=== PATIENT | female | born 1985 | race Caucasian/White ===

== ENCOUNTER 2018-05-28 20:04 | Emergency (ER) | payer SELFPAY ==
[~2018-05-28] VITALS: Ht 172.7 cm; Wt 124.3 kg
--- NOTE | 2018-05-28 20:46 | NUR ---
Doctor imformed of patient condition.
[2018-05-28] MEDS ORDERED: AMOX500C2 PO (20:51)
--- NOTE | 2018-05-28 20:51 | ED EENT ---
History of Present Illness General Chief Complaint: Oral/Throat Problems Stated Complaint: SORE THROAT, CHILLS, FEVER, BODY ACHES History of Present Illness Date Seen by Provider: May 28, 2018 Time Seen by Provider: 20:40 Timing/Duration: gradual Severity: moderate Location: throat Prearrival Treatment: over the counter meds Associated Symptoms: No cough; sore throat 33-year-old female presents with a sore throat for the last couple of days after being exposed to several friends who were diagnosed with strep throat. Pain is worse when swallowing but no difficulty swallowing. No difficulty breathing. No cough. She does have a subjective fever. No rash, no other symptoms. Allergies and Home Medications Allergies Coded Allergies: coconut (Verified Allergy, Unknown, 05/28/18) Uncoded Allergies: STRAWBERRIES (Allergy, Unknown, 05/28/18) Home Medications Amoxicillin 500 Mg Capsule, 500 MG PO TID Prescribed by: MATT PEREZ on 05/28/182050 Patient Home Medication List Home Medication List Reviewed: Yes Review of Systems Review of Systems Constitutional: see HPI Eyes: No Symptoms Reported Nose: no symptoms reported Mouth: no symptoms reported Throat: see HPI Respiratory: no symptoms reported Cardiovascular: no symptoms reported Gastrointestinal: no symptoms reported Musculoskeletal: no symptoms reported Skin: no symptoms reported Neurological: No Symptoms Reported Hematologic/Lymphatic: No Symptoms Reported Immunological/Allergic: no symptoms reported Past Kyssjdh-Svuokn-Jiemgp Hx Past Med/Social Hx: Reviewed Nursing Past Med/Soc Hx Patient Social History Recent Foreign Travel: No Contact w/Someone Who Travel: No Physical Exam Vital Signs Vital Signs - First Documented 05/28/18 20:42 Temp 100.0 Pulse 110 Resp 20 B/P (MAP) 144/84 (104) Pulse Ox 100 Height, Weight, BMI Height: '" Weight: lbs. oz. kg; BMI Method: General Appearance: no apparent distress Eyes: bilateral eye normal inspection Nose: normal inspection Mouth/Throat: No pharynx swelling; tonsillar exudate Neck: other (there is tenderness over the bilateral anterior cervical chains) Cardiovascular: normal peripheral pulses, regular rate, rhythm Respiratory: normal breath sounds Gastrointestinal: non tender, soft Skin: warm/dry Progress/Results/Core Measures Results/Orders Lab Results Laboratory Tests Test 05/28/18 20:50 Range/Units My Orders Orders - MATT PEREZ DO Rapid Strep A Screen (05/28/18 20:49) Amoxicillin Capsule (Polymox Capsule) (05/28/18 20:58) Vital Signs/I&O 05/28/18 20:42 Temp 100.0 Pulse 110 Resp 20 B/P (MAP) 144/84 (104) Pulse Ox 100 Progress Progress Note : Progress Note Fever, tonsillar exudate, anterior cervical adenopathy, absence of cough, exposure to strep, we'll treat empirically with amoxicillin, first dose given in the emergency department. Throat culture was obtained. Airway is patent. Patient is nontoxic. Stable for outpatient follow-up. Departure Impression Primary Impression: Exudative pharyngitis Disposition: HOME, SELF-CARE Condition: Stable Departure-Patient Inst. Referrals: NO,LOCAL PHYSICIAN (PCP) Primary Care Physician Patient Instructions: Strep Throat (DC) Scripts Amoxicillin (Amoxicillin) 500 Mg Capsule 500 MG PO TID for 10 Days, #30 CAP 0 Refills Prov: MATT PEREZ DO 05/28/18 MATT PEREZ DO May 28, 2018 20:51
[2018-05-28] MEDS ORDERED: AMOXICILLIN 500 MG (POLYMOX) CAP PO STA (20:58)
[2018-05-28 21:05] VITALS: BP 129/51
== END 2018-05-28 21:05 | disposition home or self-care (01) ==
LOC: ER FS 20:06
DX: J02.9 Acute pharyngitis, unspecified (principal)
CPT/HCPCS: 87430; 99284

== ENCOUNTER 2020-05-06 22:48 | Emergency (ER) | payer MEDICAID, OTHER ==
[~2020-05-06] VITALS: Ht 170.1 cm; Wt 136.0 kg
[~2020-05-06 22:48] MED LIST: ACETAMINOPHEN; ACHD5005 PO; AMOX500C2 PO; BUSPAR; CEPH500C PO; CODEINE; DICY20TA57 PO; IBUP-15 PO; METR500T PO; NITR100C PO; [UNRECOGNIZED DRUG - CODE]
[2020-05-06 23:00] VITALS: BP 119/69
[2020-05-06] MEDS ORDERED: PROM25TA14 PO (23:14)
[2020-05-06] MEDS ORDERED: IBUP-1780 PO (23:14)
[2020-05-06] MEDS ORDERED: PROMETHAZINE INJ 25 MG/ML (PHENERGAN) AMP IM/IV ONE (23:15)
[2020-05-06] MEDS ORDERED: KETOROLAC 60 MG/2 ML VIAL IM ONE (23:15)
--- NOTE | 2020-05-06 23:15 | ED Headache ---
General Chief Complaint: Head/Cervical Problems Stated Complaint: VOMITING/HEADACHE History of Present Illness Date Seen by Provider: May 06, 2020 Time Seen by Provider: 11:05 Initial Comments 35-year-old female presents with headache beginning at 2 AM today. Continues on arrival without relief. She is taken Tylenol x1 and ibuprofen 800x1 with no relief. History of migraine headaches, but has not had one for a couple years. Denies any recent illness, fever chills, nausea vomiting, cough or shortness of air. Does have some associated nausea, some mild light sensitivity without visual change. Denies any numbness weakness or paresthesia Allergies and Home Medications Allergies Coded Allergies: coconut (Verified Allergy, Unknown, 05/28/18) Uncoded Allergies: STRAWBERRIES (Allergy, Unknown, 05/28/18) Home Medications Amoxicillin 500 Mg Capsule, 500 MG PO TID Prescribed by: MATT PEREZ on 05/28/182050 Dicyclomine Hcl 20 Mg Tablet, 1 EACH PO QID PRN Prescribed by: MARK DENG on 06/04/112213 Metronidazole 500 Mg Tab, 1 EACH PO BID Prescribed by: MARK DENG on 06/04/112213 Patient Home Medication List Home Medication List Reviewed: Yes Review of Systems Review of Systems Constitutional: No dizziness, No fever; malaise; No weakness Eyes: Denies Blindness, Denies Blurred Vision, Denies Decreased Acuity, Denies Inflammation, Denies Pain; Photophobia Ears, Nose, Mouth, Throat: no symptoms reported Respiratory: no symptoms reported Cardiovascular: no symptoms reported Gastrointestinal: No abdominal pain, No constipation, No diarrhea, No loss of appetite; nausea, vomiting (x1) Musculoskeletal: No back pain, No neck pain Psychiatric/Neurological: See HPI, Headache; Denies Numbness, Denies Paresthesia, Denies Seizure, Denies Tingling, Denies Tremors, Denies Weakness Past Lyvrhmj-Fznjhl-Iaxysj Hx Past Med/Social Hx: Reviewed Nursing Past Med/Soc Hx Immunizations Up To Date Date of Influenza Vaccine: Mar 14, 2011 Physical Exam Vital Signs Capillary Refill : Height, Weight, BMI Height: 5'8.00" Weight: 274lbs. oz. 124.945619bz; BMI Method:Stated General Appearance: WD/WN, no apparent distress HEENT: PERRL/EOMI, normal ENT inspection, TMs normal, pharynx normal Neck: non-tender, supple, normal inspection Psychiatric: alert, oriented x 3 Crainal Nerves: normal hearing, normal speech, PERRL Coordination/Gait: normal finger to nose, normal gait Motor/Sensory: no motor deficit, no sensory deficit Skin: normal color, warm/dry Progress/Results/Core Measures Results/Orders My Orders Orders - TRACEY LOREDO DO Ketorolac Injection (Toradol Injection) (05/06/20 23:15) Promethazine Injection (Phenergan Injec (05/06/20 23:15) Departure Impression Primary Impression: Migraine Qualified Codes: G43.909 - Migraine, unspecified, not intractable, without status migrainosus Disposition: HOME, SELF-CARE Condition: Improved Departure-Patient Inst. Decision time for Depature: 11:30 Referrals: YOLA WILLS APRN (PCP/Family) Primary Care Physician Patient Instructions: Migraines (DC) Scripts Ibuprofen (Ibuprofen) 800 Mg Tablet 800 MG PO Q8H PRN for PAIN, #30 TAB 0 Refills Prov: TRACEY LOREDO DO 05/06/20 Promethazine HCl (Promethazine Tablet) 25 Mg Tablet 25 MG PO Q8H PRN for NAUSEA/VOMITING, #14 TAB 0 Refills Prov: TRACEY LOREDO DO 05/06/20 Work/School Note: Work Release Form Date Seen in the Emergency Department: May 06, 2020 Return to Work: May 08, 2020 Restrictions: No Restrictions TRACEY LOREDO DO May 06, 2020 23:15
== END 2020-05-06 23:35 | disposition home or self-care (01) ==
LOC: EDUNIT# 22:48 → ER FS 22:53
DX: G43.909 Migraine, unspecified, not intractable, without status migrainosus (principal)
CPT/HCPCS: 99284

== ENCOUNTER 2021-05-11 17:25 | Emergency (ER) | payer MEDICAID ==
[~2021-05-11] VITALS: Ht 172.7 cm; Wt 60.8 kg
[~2021-05-11 17:25] MED LIST changes: +IBUP-1780 PO; +PROM25TA14 PO
[2021-05-11 17:30] VITALS: BP 152/99
--- NOTE | 2021-05-11 17:31 | ED EENT ---
History of Present Illness General Stated Complaint: R EYE PAIN History of Present Illness Date Seen by Provider: May 11, 2021 Time Seen by Provider: 17:31 Initial Comments 36-year-old female presents because she has something in her right eye. She says it started about 2 hours prior to arrival. She is unsure if it sawdust or and eye lash. She has tried flushing it. Patient just complains of some pain especially with movement. Most the pain is on the lower part of the eye behind the lower lid. Allergies and Home Medications Allergies Coded Allergies: coconut (Verified Allergy, Unknown, 05/28/18) Uncoded Allergies: STRAWBERRIES (Allergy, Unknown, 05/28/18) Patient Home Medication List Home Medication List Reviewed: Yes Amoxicillin (Amoxicillin) 500 Mg Capsule, 500 MG PO TID Prescribed by: MATT PEREZ on 05/28/182050 Dicyclomine Hcl (Bentyl) 20 Mg Tablet, 1 EACH PO QID PRN Prescribed by: MARK DENG on 06/04/112213 Ibuprofen (Ibuprofen) 800 Mg Tablet, 800 MG PO Q8H PRN for PAIN Prescribed by: TRACEY LOREDO on 05/06/202313 Metronidazole (Flagyl 500 Mg) 500 Mg Tab, 1 EACH PO BID Prescribed by: MARK DENG on 06/04/112213 Promethazine HCl (Promethazine Tablet) 25 Mg Tablet, 25 MG PO Q8H PRN for NAUSEA/VOMITING Prescribed by: TRACEY LOREDO on 05/06/202313 Review of Systems Review of Systems Constitutional: no symptoms reported Eyes: See HPI Ears: No Symptoms Reported Respiratory: no symptoms reported Cardiovascular: no symptoms reported Gastrointestinal: no symptoms reported Past Ifbyenm-Nlyyda-Uzcgto Hx Past Medical History [employer] 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 oz. 124.750278td; 47.00 BMI Method:Stated General Appearance: no apparent distress Eyes: right eye foreign body (Eyelash/sawdust); bilateral eye PERRL, bilateral eye EOMI Nose: normal inspection Cardiovascular: normal peripheral pulses, regular rate, rhythm Respiratory: no respiratory distress, no accessory muscle use Neurologic/Psychiatric: alert, normal mood/affect, oriented x 3 Skin: normal color, warm/dry Procedures/Interventions Eye : Location: right eye Eye FB Removal: removal w/ cotton swab Anesthesia (gtts): Tetracaine Progress/Procedure Conclusion Fluorescein stain used with a Roach lamp and no corneal abrasion noted, there was a small eyelash along with a small what appeared to be piece of sawdust removed with cotton swab. Progress/Results/Core Measures Results/Orders My Orders Orders - LA MAYNARD DO Tetracaine 0.5% Ophth Lianet Sdv (Tetracai (05/11/21 17:45) Fluorescein Strips (Jssuf-G-Xxinmb) (05/11/21 17:35) Progress Progress Note : Progress Note Both an eyelash and what appears to be a very small piece of sawdust was removed with a cotton swab. Fluorescein stain shows no corneal abrasion. Patient is feeling suddenly better. Her right eye was flushed again after removal with cotton swab. Patient is doing much better stable and discharged Departure Impression Primary Impression: Foreign body of eye, external, right Qualified Codes: T15.91XA - Foreign body on external eye, part unspecified, right eye, initial encounter Disposition: 01 HOME, SELF-CARE Condition: Stable Departure-Patient Inst. Referrals: YOLA WILLS APRN (PCP/Family) Primary Care Physician Patient Instructions: Foreign Body in Eye (DC) Add. Discharge Instructions: Flushed with cool water if you feel there is another foreign body Return to the ER as needed Follow-up with your eye doctor the next couple days for recheck of your symptoms LA MAYNARD DO May 11, 2021 17:31
[2021-05-11] MEDS ORDERED: FLUORESCEIN (FLUOR-I-STRIPS) 1 MG STRP ONE (17:35)
[2021-05-11] MEDS ORDERED: TETRACAINE 0.5% OPHTH SOLN 4 ML BTL (SINGLE DOSE ONLY) OP ONE (17:45)
== END 2021-05-11 17:52 | disposition home or self-care (01) ==
LOC: EDUNIT# 17:25 → ER FS 17:26
DX: T15.91XA Foreign body on external eye, part unspecified, right eye, initial encounter (principal)
CPT/HCPCS: 99281

== ENCOUNTER 2022-07-11 18:02 | Emergency (ER) | payer OTHER, MEDICAID ==
[~2022-07-11] VITALS: Ht 170 cm; Wt 130.0 kg
[2022-07-11 18:06] VITALS: BP 144/88
[2022-07-11] MEDS ORDERED: FAMOTIDINE 20 MG (PEPCID) TABLET PO STA (18:10)
[2022-07-11] MEDS ORDERED: ANTACID SUSP 30 ML UDC (MYLANTA) PO ONE (18:15)
[2022-07-11] MEDS ORDERED: ACETAMINOPHEN 500 MG TAB (TYLENOL) PO ONE (18:15)
[2022-07-11] MEDS ORDERED: LORazepam 0.5 MG (ATIVAN) TABLET PO ONE (18:15)
[2022-07-11] MEDS ORDERED: KETOROLAC 15 MG/ML VIAL IVP ONE (18:15)
[2022-07-11] MEDS ORDERED: LIDOCAINE 2% VISCOUS 15 ML UDC PO ONE (18:15)
--- NOTE | 2022-07-11 18:15 | ED Back Pain ---
General Chief Complaint: Back Problems Stated Complaint: CHEST TIGHTNESS,NUMBESS IN HANDS/ARMS,SOB Nursing Triage Note: Patient has presented to ER with cc of back pain for the last few days, arms and hand numb and tingle for two months. She reports that she is tired of hurting. She also complains of tightness in her chest. She has not taking anything for her pain. She has been trying to get an appointment with her doctor for several weeks but she has not been able to get into the doctor. Source of Information: Patient Exam Limitations: No Limitations History of Present Illness Date Seen by Provider: Jul 11, 2022 Time Seen by Provider: 18:04 Initial Comments 29-year-old female with no pertinent past medical history coming in due to upper back pain and chest tightness its been going on for the past few days. Was come and go, not been constant for the entire day. Worse when she takes a deep breath. Try to see her doctor, but has been unable to get in. She is also had some tingling in her bilateral fingers for months. Denies any trauma, neck pain, weakness, shortness of breath, abdominal pain, nausea, vomiting, diarrhea, fever, chills, cough, leg swelling or pain, no prior history of DVT or PE, no cardiac history, no hemoptysis, no recent surgery, no hormone use. Allergies and Home Medications Allergies Coded Allergies: coconut (Verified Allergy, Unknown, 05/28/18) Uncoded Allergies: STRAWBERRIES (Allergy, Unknown, 05/28/18) Patient Home Medication List Home Medication List Reviewed: Yes Amoxicillin (Amoxicillin) 500 Mg Capsule, 500 MG PO TID Prescribed by: MATT PEREZ on 05/28/182050 Cyclobenzaprine HCl (Cyclobenzaprine HCl) 10 Mg Tablet, 10 MG PO Q8H PRN for SPASMS Prescribed by: CHRIST MERCADO on 07/11/22 184 Dicyclomine Hcl (Bentyl) 20 Mg Tablet, 1 EACH PO QID PRN Prescribed by: MARK DENG on 06/04/112213 Ibuprofen (Ibuprofen) 800 Mg Tablet, 800 MG PO Q8H PRN for PAIN Prescribed by: TRACEY LOREDO on 05/06/20 231 Metronidazole (Flagyl 500 Mg) 500 Mg Tab, 1 EACH PO BID Prescribed by: MARK DENG on 06/04/112213 Promethazine HCl (Promethazine Tablet) 25 Mg Tablet, 25 MG PO Q8H PRN for NAUSEA/VOMITING Prescribed by: TRACEY LOREDO on 05/06/20 2314 Review of Systems Constitutional: No fever EENTM: no symptoms reported Respiratory: no symptoms reported Cardiovascular: see HPI Gastrointestinal: no symptoms reported Genitourinary: no symptoms reported Musculoskeletal: see HPI Skin: no symptoms reported Psychiatric/Neurological: No Symptoms Reported Past Rhpvjaq-Guunqb-Narymt Hx Patient Social History Tobacco Use?: No Use of E-Cig and/or Vaping dev: No Substance use?: No Alcohol Use?: No Past Medical History Surgeries: Yes Gallbladder, 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 oz. 124.607402du; 44.00 BMI Method:Stated General Appearance: WD/WN, Anxious HEENT: PERRL/EOMI, Normal ENT Inspection, Pharynx Normal Neck: Full Range of Motion, Normal Inspection, Non Tender, Supple Cardiovascular: Regular Rate, Rhythm, No Edema, Normal Peripheral Pulses Respiratory: Chest Non Tender, Lungs Clear, Normal Breath Sounds, No Accessory Muscle Use, No Respiratory Distress Gastrointestinal: Normal Bowel Sounds, Non Tender, Soft; No Distended, No Guarding Back: Normal Inspection, No CVA Tenderness, No Vertebral Tenderness Extremity: Normal Capillary Refill, Normal Inspection, Normal Range of Motion, Non Tender, No Calf Tenderness, No Pedal Edema Neurologic/Psychiatric: Alert, No Motor/Sensory Deficits, Normal Mood/Affect Skin: Normal Color, Warm/Dry Progress/Results/Core Measures Results/Orders Lab Results Laboratory Tests Test 07/11/22 18:18 Range/Units White Blood Count 8.2 4.3-11.0 10^3/uL Red Blood Count 4.62 3.80-5.11 10^6/uL Hemoglobin 12.5 11.5-16.0 g/dL Hematocrit 37 35-52 % Mean Corpuscular Volume 81 80-99 fL Mean Corpuscular Hemoglobin 27 25-34 pg Mean Corpuscular Hemoglobin Concent 34 32-36 g/dL Red Cell Distribution Width 13.3 10.0-14.5 % Platelet Count 274 130-400 10^3/uL Mean Platelet Volume 9.6 9.0-12.2 fL Immature Granulocyte % (Auto) 0 % Neutrophils (%) (Auto) 62 42-75 % Lymphocytes (%) (Auto) 29 12-44 % Monocytes (%) (Auto) 6 0-12 % Eosinophils (%) (Auto) 2 0-10 % Basophils (%) (Auto) 1 0-10 % Neutrophils # (Auto) 5.1 1.8-7.8 10^3/uL Lymphocytes # (Auto) 2.4 1.0-4.0 10^3/uL Monocytes # (Auto) 0.5 0.0-1.0 10^3/uL Eosinophils # (Auto) 0.1 0.0-0.3 10^3/uL Basophils # (Auto) 0.1 0.0-0.1 10^3/uL Immature Granulocyte # (Auto) 0.0 0.0-0.1 10^3/uL Prothrombin Time 13.1 12.2-14.7 SEC INR Comment 1.0 0.8-1.4 Activated Partial Thromboplast Time 33 24-35 SEC Sodium Level 140 135-145 MMOL/L Potassium Level 3.6 3.6-5.0 MMOL/L Chloride Level 105 98-107 MMOL/L Carbon Dioxide Level 24 21-32 MMOL/L Anion Gap 11 5-14 MMOL/L Blood Urea Nitrogen 14 7-18 MG/DL Creatinine 0.85 0.60-1.30 MG/DL Estimat Glomerular Filtration Rate 90 BUN/Creatinine Ratio 16 Glucose Level 110 H 70-105 MG/DL Calcium Level 9.3 8.5-10.1 MG/DL Corrected Calcium 9.2 8.5-10.1 MG/DL Magnesium Level 1.9 1.6-2.4 MG/DL Total Bilirubin 0.4 0.1-1.0 MG/DL Aspartate Amino Transf (AST/SGOT) 18 5-34 U/L Alanine Aminotransferase (ALT/SGPT) 22 0-55 U/L Alkaline Phosphatase 93 40-136 U/L Troponin I < 0.30 <0.30 NG/ML Pro-B-Type Natriuretic Peptide < 36.0 <125.0 PG/ML Total Protein 7.5 6.4-8.2 GM/DL Albumin 4.1 3.2-4.5 GM/DL Lipase 20 8-78 U/L My Orders Orders - CHRIST MERCADO MD Cbc With Automated Diff (07/11/22 18:10) Magnesium (07/11/22 18:10) Ekg Tracing (07/11/22 18:10) Comprehensive Metabolic Panel (07/11/22 18:10) Protime With Inr (07/11/22 18:10) Partial Thromboplastin Time (07/11/22 18:10) O2 (07/11/22 18:10) Monitor-Rhythm Ecg Trace Only (07/11/22 18:10) Ed Iv/Invasive Line Start (07/11/22 18:10) Lipase (07/11/22 18:10) Ketorolac Injection (Toradol Injection) (07/11/22 18:15) Acetaminophen Tablet (Tylenol Tablet) (07/11/22 18:15) Lorazepam Tablet (Ativan Tablet) (07/11/22 18:15) Lidocaine 2% Viscous 15 Ml (Xylocaine Vi (07/11/22 18:15) Famotidine Tablet (Pepcid Tablet) (07/11/22 18:10) Antacid Suspension (Mylanta Suspension (07/11/22 18:15) Probnp Fs (07/11/22 18:10) Troponin I Fs (07/11/22 18:10) Chest Pa/Lat (2 View) (07/11/22 18:54) Orphenadrine Inj (Ed Only) (Norflex Inje (07/11/22 19:30) Medications Given in ED Current Medications Medications Dose Ordered Sig/Last Route Start Time Stop Time Status Last Admin Dose Admin Acetaminophen 1,000 mg ONCE ONCE PO 07/11/22 18:15 07/11/22 18:16 DC 07/11/22 18:26 1,000 MG Al Hydrox/Mg Hydrox/Simethicone 30 ml ONCE ONCE PO 07/11/22 18:15 07/11/22 18:16 DC 07/11/22 18:25 30 ML Ketorolac Tromethamine 15 mg ONCE ONCE IVP 07/11/22 18:15 07/11/22 18:16 DC 07/11/22 18:25 15 MG Lidocaine HCl 15 ml ONCE ONCE PO 07/11/22 18:15 07/11/22 18:16 DC 07/11/22 18:25 15 ML Lorazepam 0.5 mg ONCE ONCE PO 07/11/22 18:15 07/11/22 18:16 DC 07/11/22 18:25 0.5 MG Orphenadrine Citrate 60 mg ONCE ONCE IM 07/11/22 19:30 07/11/22 19:31 DC 07/11/22 19:30 60 MG Vital Signs/I&O 07/11/22 18:06 Temp 36.3 Pulse 85 Resp 18 B/P (MAP) 144/88 (106) Pulse Ox 99 2 Blood Pressure Mean: 106 Progress Progress Note : Progress Note 37yoF with above history coming in for upper back pain with chest tightness. ABCs intact and VSS on presentation. EKG ordered and interpreted by me showing no acute ischemic changes. Chest x-ray ordered and interpreted by me showing no obvious pneumothorax, no opacities concerning for pneumonia, normal cardiac silhouette. An IV was placed and basic labs were obtained including cardiac biomarkers. White blood cell count normal, hemoglobin normal, creatinine normal, troponin negative. Given the constant pain for more than 12 hours, very unlikely to be ACS, also she is very low risk with minimal risk factors. She is low risk for a PE per [place] criteria and is PERC negative. PE sufficiently ruled out at this time. She was given a GI cocktail as well as Toradol and the IV. On reassessment symptoms improving. I did a vpzoh-im-lare ultrasound ruling out pericardial effusion. I believe she is otherwise stable for discharge with outpatient follow-up. She was sent home with strict return precautions. Initial ECG Impression Date: Jul 11, 2022 Initial ECG Impression Time: 18:14 Initial ECG Rate: 76 Initial ECG Rhythm: Normal Sinus Comment Narrow QRS, normal axis, no significant ST changes or T wave abnormality Diagnostic Imaging Diagonstic Imaging: Xray (chest) Comments [facility], [place] NAME: ABA ARNOLD [facility] REC#: [id number] PT STATUS: REG ER : 1985 PHYSICIAN: CHRIST MERCADO MD ADMIT DATE: 07/11/22/ER FS Draft Date of Exam:07/11/22 CHEST PA/LAT (2 VIEW) INDICATION: Chest pain. EXAMINATION: PA and lateral views of the chest were obtained. COMPARISON: No previous study is available for comparison at this time. FINDINGS: Heart size and pulmonary vasculature are within normal limits and the lungs are clear, bilaterally. IMPRESSION: Unremarkable chest. Dictated on workstation # [id number] Dict: 07/11/221908 Trans: 07/11/221909 PJE [id number] Interpreted by: MARY RUDD MD Electronically signed by: Departure Impression Primary Impression: Strain of thoracic region Qualified Codes: S29.019A - Strain of muscle and tendon of unspecified wall of thorax, initial encounter Additional Impression: Chest tightness Disposition: 01 HOME, SELF-CARE Condition: Stable Departure-Patient Inst. Referrals: YOLA WILLS APRN (PCP/Family) Primary Care Physician Patient Instructions: Muscle Strain ED Add. Discharge Instructions: We are not finding any evidence of anything life-threatening. Given your history, it is most likely a strain in your upper back. A muscle relaxer was sent to your pharmacy, otherwise take [id number] ibuprofen and Tylenol. Please do continue to follow-up with your regular doctor. If symptoms are not improving after 2-week, you may benefit from seeing an bilingual customer service specialist which your primary care provider can refer you to. Scripts Lidocaine (Lidocaine 5% Patch) 5 % Adh..patch 1 EACH TP Q12H PRN for Neuropathic pain MDD 2 for 14 Days, #28 PATCH 2 patches max for 12 hours, then 12 hours patch-free period. Prov: CHRIST MERCADO MD 07/11/22 Cyclobenzaprine HCl (Cyclobenzaprine HCl) 10 Mg Tablet 10 MG PO Q8H PRN for SPASMS for 5 Days, #15 TAB 0 Refills Prov: CHRIST MERCADO MD 07/11/22 Work/School Note: Work Release Form Date Seen in the Emergency Department: Jul 11, 2022 Return to Work: Jul 13, 2022 Restrictions: No Restrictions CHRIST MERCADO MD Jul 11, 2022 18:15
[2022-07-11 18:29] LABS: BASOPHILS # (AUTO) 0.1 10^3/uL (0.0-0.1); BASOPHILS % (AUTO) 1 % (0-10); EOSINOPHILS # (AUTO) 0.1 10^3/uL (0.0-0.3); EOSINOPHILS % (AUTO) 2 % (0-10); HEMATOCRIT 37 % (35-52); HEMOGLOBIN 12.5 g/dL (11.5-16.0); LYMPHOCYTES # (AUTO) 2.4 10^3/uL (1.0-4.0); LYMPHOCYTES % (AUTO) 29 % (12-44); MEAN CORPUSCULAR HEMOGLOBIN 27 pg (25-34); MEAN CORPUSCULAR HGB CONC 34 g/dL (32-36); MEAN CORPUSCULAR VOLUME 81 fL (80-99); MEAN PLATELET VOLUME 9.6 fL (9.0-12.2); MONOCYTES # (AUTO) 0.5 10^3/uL (0.0-1.0); MONOCYTES % (AUTO) 6 % (0-12); NEUTROPHILS # (AUTO) 5.1 10^3/uL (1.8-7.8); NEUTROPHILS % (AUTO) 62 % (42-75); PLATELET COUNT 274 10^3/uL (130-400); WHITE BLOOD COUNT 8.2 10^3/uL (4.3-11.0)
[2022-07-11 18:43] LABS: PROTHROMBIN TIME PATIENT 13.1 SEC (12.2-14.7)
[2022-07-11] MEDS ORDERED: CYCL10TA25 PO (18:43)
--- NOTE | 2022-07-11 19:10 | Diagnostic Imaging Report ---
INDICATION: Chest pain. EXAMINATION: PA and lateral views of the chest were obtained. COMPARISON: No previous study is available for comparison at this time. FINDINGS: Heart size and pulmonary vasculature are within normal limits and the lungs are clear, bilaterally. IMPRESSION: Unremarkable chest. Dictated by: Dictated on workstation # [id number]
[2022-07-11 19:20] LABS: BUN/CREATININE RATIO 16; CALCIUM 9.3 MG/DL (8.5-10.1); CARBON DIOXIDE 24 MMOL/L (21-32); CHLORIDE 105 MMOL/L (98-107); CREATININE SERUM 0.85 MG/DL (0.60-1.30); GFR ESTIMATED 90; GLUCOSE 110 MG/DL (70-105); POTASSIUM 3.6 MMOL/L (3.6-5.0); SODIUM 140 MMOL/L (135-145)
[2022-07-11 19:21] LABS: ALANINE AMINOTRANSFERASE 22 U/L (0-55); ALBUMIN 4.1 GM/DL (3.2-4.5); ALKALINE PHOSPHATASE 93 U/L (40-136); BILIRUBIN,TOTAL 0.4 MG/DL (0.1-1.0); TOTAL PROTEIN 7.5 GM/DL (6.4-8.2)
[2022-07-11 19:22] LABS: LIPASE 20 U/L (8-78)
[2022-07-11] MEDS ORDERED: ORPHENADRINE 60 MG/2 ML (NORFLEX) AMP (ED ONLY) IM ONE (19:30)
[2022-07-11 19:38] LABS: MAGNESIUM 1.9 MG/DL (1.6-2.4)
[2022-07-11] MEDS ORDERED: LIDO700A45 TP (19:45)
== END 2022-07-11 19:55 | disposition home or self-care (01) ==
LOC: EDUNIT# 18:02 → ER FS 18:03
DX: S29.012A Strain of muscle and tendon of back wall of thorax, initial encounter (principal); R07.89 Other chest pain; X58.XXXA Exposure to other specified factors, initial encounter
CPT/HCPCS: 36415; 71046; 80053; 83690; 83735; 83880; 84484; 85025; 85610; 85730; 93005; 93041; 96372; 96374